=== PATIENT | female | born 1970 | race Caucasian/White ===

== ENCOUNTER 2018-12-30 09:49 | Outpatient (CLI) | payer OTHER ==
--- NOTE | 2018-12-30 11:27 | RAD ---
RIGHT HAND TWO VIEWS: HISTORY: Disability exam. FINDINGS/IMPRESSION: Mild deformity of the 5th metacarpal, possibly related to old trauma. No fracture, dislocation, or o ther significant acute osseous abnormality. POS: OFF
--- NOTE | 2018-12-30 11:41 | RAD ---
LEFT FOOT TWO VIEWS: INDICATIONS: Disability examination. COMPARISON: None. FINDINGS: There is moderate enthesopathic change of the calcaneus. There are vascular calcifications within th e soft tissues. 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 Lisfranc alignment is preserved. No acute fracture is evident. IMPRESSION: No acute osseous abnormality. POS: TPC
== END 2018-12-30 09:50 | disposition home or self-care (01) ==
LOC: BICRAD 09:49
PROVIDERS: ATTEND Internal Medicine
DX: Z02.71 Encounter for disability determination (principal); M20.001 Unspecified deformity of right finger(s)

== ENCOUNTER 2021-08-18 17:16 | Emergency (ER) | payer SELFPAY ==
[2021-08-18] MEDS ORDERED: Boostrix 0.5 ML (Tdap) VIAL ONE (17:59)
[2021-08-18] MEDS ORDERED: Acetaminophen 325 MG TAB ONE (17:59)
== END 2021-08-18 18:54 | disposition home or self-care (01) ==
LOC: ERS 17:16
DX: S50.11XA Contusion of right forearm, initial encounter (principal); W18.39XA Other fall on same level, initial encounter; E11.9 Type 2 diabetes mellitus without complications
CPT/HCPCS: 90471; 90715; 93005

== ENCOUNTER 2021-12-04 13:14 | Emergency (ER) | payer SELFPAY ==
[2021-12-04] MEDS ORDERED: Lidocaine 1% PF 5 ML VIAL ONE (14:28)
[2021-12-04] MEDS ORDERED: Bacitracin 1 PK ONE (15:51)
== END 2021-12-04 16:03 | disposition home or self-care (01) ==
LOC: ERS 13:14
DX: L05.01 Pilonidal cyst with abscess (principal); E11.9 Type 2 diabetes mellitus without complications
CPT/HCPCS: 10080